=== PATIENT | female | born 1970 | race Hispanic/Latino ===

== ENCOUNTER 2022-04-01 08:42 | Outpatient (CLI) | payer BC | END 2022-04-01 08:43 | disposition home or self-care (01) | LOC: CSHMAMMO 08:42 | PROVIDERS: ATTEND Obstetrics & Gynecology | DX: Z12.31 Encounter for screening mammogram for malignant neoplasm of breast (principal); N63.20 Unspecified lump in the left breast, unspecified quadrant; N63.10 Unspecified lump in the right breast, unspecified quadrant | CPT/HCPCS: 77063; 77067 ==

== ENCOUNTER 2023-04-02 09:06 | Outpatient (CLI) | payer BC | END 2023-04-02 09:07 | disposition home or self-care (01) | LOC: CSHMAMMO 09:06 | PROVIDERS: ATTEND Obstetrics & Gynecology | DX: Z12.31 Encounter for screening mammogram for malignant neoplasm of breast (principal) | CPT/HCPCS: 77063; 77067 ==